=== PATIENT | male | born 1950 | race Caucasian/White ===

== ENCOUNTER 2017-08-04 08:33 | Emergency (ER) | payer OTHER, MEDICARE ==
[~2017-08-04] VITALS: Ht 170.2 cm; Wt 68.0 kg
[~2017-08-04 08:33] MED LIST: ADVICOR 500 MG1 EACH; ADVICOR 500 MG1 EACH PO; ANDROGEL2.5 GM TD; ASPIRIN81 M2 PO; DIABETIC PILL; FISH OIL 1,0001 EAC7 PO; GLUCOSAMINE1000 MG PO; JANUMET PO; LEVOTHYROXINE0.05 MG NG; LEVOTHYROXINE0.05 MG PO; LISINOPRIL; MULTIVITAMINS; NORCO 5-325 TA1 EACH PO; NORFLEX100 MG PO; VITAMINC500 PO; ZESTRIL2.5 MG PO
[2017-08-04 09:57] VITALS: BP 107/66
== END 2017-08-04 09:57 | disposition home or self-care (01) ==
LOC: M.ERS 08:33
DX: S93.491A Sprain of other ligament of right ankle, initial encounter (principal); S83.8X1A Sprain of other specified parts of right knee, initial encounter; E78.5 Hyperlipidemia, unspecified; Z87.442 Personal history of urinary calculi; W01.0XXA Fall on same level from slipping, tripping and stumbling without subsequent striking against object, initial encounter; Y93.89 Activity, other specified; Y92.89 Other specified places as the place of occurrence of the external cause; Y99.8 Other external cause status